=== PATIENT | male | born 1980 | race Caucasian/White ===

== ENCOUNTER 2021-05-12 07:47 | Observation (INO) | payer MEDICARE, MEDICAID ==
[~2021-05-12] VITALS: Ht 157.5 cm; Wt 82.3 kg
[2021-05-12] MEDS ORDERED: ACETAMINOPHEN TAB 650MG DOSE (2X325MG) PO ONE (08:10)
--- NOTE | 2021-05-12 08:29 | REP ---
INDICATION: seizure COMPARISON: None. TECHNIQUE: Axial noncontrast images from the skull base to the vertex with coronal reformations. This CT examination was performed using the following dose reduction techniques: Automated exposure control, adjustment of mA and/or kv according to the patient's size, and use of iterative reconstruction technique. FINDINGS: The ventricles, sulci, and cisterns are normal in position and appearance. Agustin-white differentiation is maintained. No acute intracranial hemorrhage, mass/mass effect, pathology or trauma/injury. No evidence for acute infarction. No extra-axial fluid collection. Calvarium is intact. Paranasal sinuses and mastoid air cells are clear. IMPRESSION: Normal noncontrast head CT. No evidence for acute intracranial pathology or trauma/injury. <Electronically signed by Solomon Funk > 05/12/21 [id number]
[2021-05-12] MEDS ORDERED: lamoTRIgine 100MG TAB PO ONE (09:00)
[2021-05-12] MEDS ORDERED: GABAPENTIN 300 MG CAP PO SCH (09:00)
--- NOTE | 2021-05-12 09:20 | REP ---
INDICATION: seizure COMPARISON: None. TECHNIQUE: Portable AP view of the chest FINDINGS: The mediastinum and cardiac silhouette are within normal limits for portable technique. The lung davidson are clear without acute consolidation, effusion, or pneumothorax. Skeletal structures are intact. IMPRESSION: No acute cardiopulmonary process appreciated. <Electronically signed by Solomon Funk > 05/12/21 [id number]
[2021-05-12] MEDS ORDERED: PANT20TA51 PO (09:24)
[2021-05-12] MEDS ORDERED: QUET300T2 PO (09:24)
[2021-05-12] MEDS ORDERED: ASPI81TA26 PO (09:24)
[2021-05-12] MEDS ORDERED: GABA-282 PO (09:24)
[2021-05-12] MEDS ORDERED: ADDE10TA PO (09:24)
[2021-05-12] MEDS ORDERED: NIFE1TAB51 PO (09:24)
[2021-05-12] MEDS ORDERED: BRIL90TA PO (09:24)
[2021-05-12] MEDS ORDERED: CLON0.5T2 PO (09:24)
[2021-05-12] MEDS ORDERED: ATOR80TA59 PO (09:24)
[2021-05-12] MEDS ORDERED: LEXA1TAB2 PO (09:24)
[2021-05-12] MEDS ORDERED: JARD1TAB3 PO (09:37)
[2021-05-12] MEDS ORDERED: LISI10TA22 PO (09:37)
[2021-05-12] MEDS ORDERED: LAMO25TA4 PO (09:37)
[2021-05-12] MEDS ORDERED: METO25TA4 PO (09:37)
[2021-05-12] MEDS ORDERED: MORPHINE 4 MG/ML 1ML VIAL/SYRINGE (J2270) IV ONE (09:40)
[2021-05-12 09:41] LABS: BLOOD UREA NITROGEN 21 MG/DL (7-18); CARBON DIOXIDE LEVEL 24 MEQ/L (21-32); CHLORIDE LEVEL 108 MEQ/L (98-107); CK-MB VALUE MASS < 1.0 NG/ML (<3.6); CPK CREATINE PHOSPHOKINASE 49 U/L (39-308); CREATININE FOR GFR 1.51 MG/DL (0.70-1.30); GLOMERULAR FILTRATION RATE 54.8 (>60); GLUCOSE, FASTING 115 MG/DL (70-100); MB/CK RELATIVE INDEX 2.04 (< OR =4); POTASSIUM SERUM 3.7 MEQ/L (3.5-5.1); SODIUM LEVEL 140 MEQ/L (136-145); TROPONIN I < 0.02 NG/ML (< 0.10)
[2021-05-12] MEDS ORDERED: INSUHUMDS SC (09:46)
[2021-05-12] MEDS: ATORVASTATIN 20 MG TAB PO SCH (10:52)
[2021-05-12] MEDS: ESCITALOPRAM OXALATE 10 MG TAB (LEXAPRO) PO SCH (10:52)
[2021-05-12] MEDS: ASPIRIN 81MG ENTERIC TABLET PO SCH (10:53)
[2021-05-12] MEDS ORDERED: DEXTROSE 50% 50 ML SYRINGE IV PRN (12:20)
[2021-05-12] MEDS ORDERED: GLUCOSE 4GM CHEW TABLET PO PRN (12:20)
[2021-05-12] MEDS ORDERED: GLUCAGON INJ 1MG VIAL SC PRN (12:20)
--- NOTE | 2021-05-12 12:26 | HPEPDOC ---
General Date of Admission May 12, 2021 at 07:48 Date of Service: May 12, 2021 Chief Complaint The patient is a 40-year-old male admitted with a reason for visit of Seizure. Source: Patient, RN/MD History of Present Illness This is a 40-year-old male with history of seizure disorder from the age of 2 years diabetes, hypertension, CKD, CAD status post 1 stent in the RCA, nonco mpliant with medications as per external medication history presented as a transfer from [facility] emergency room to our emergency room for multiple seizure. Patient reports that he has been seizure-free for for the past 2 years. Then in the past 24 hours he had 6 seizures, 3 at home during the ambulance, 1 outside hospital emergency room. He has not had any seizure in our emergency room. He reports that he was started on Chantix about 10 days ago which helped with his smoking but it started giving him bad headaches he was very tired and was sleeping most of the day. Today he complains of a headache 8 /10 in intensity throbbing all over the head with the light bothering him. He reports that he is supposed to be on lamotrigine to 225 mg twice a day. Patient was discussed with Dr. Robles by ED provider Dr. Agustin and he was restarted on his lamotrigine. Patient was admitted for multiple seizures. I spoke with the patient's friend Kaley who also picks up his medications and sometimes sets them up. She states that he definitely takes his seizure medication his Klonopin and his Adderall. He was not take taking his cardiac medications but he started taking them last month. She does say that he had lots of old medications remaining from years before up to 5 years old medications which he has been finishing up so he does not always picker box operator his medications from the pharmacy. She did say that he is not good about taking his medications and just recently they have started a systems requirements planner and she has been helping him get back on track. Home Medications Scheduled Aspirin (Aspirin EC) 81 Mg Tablet., 81 MG PO DAILY, (Reported) Atorvastatin Calcium (Atorvastatin Calcium) 80 Mg Tablet, 80 MG PO DAILY, (Reported) Dextroamphetamine/Amphetamine (Adderall 10 mg Tablet) 10 Mg Tablet, 10 MG PO BID, (Reported) TAKES AM/AFTERNOON Empagliflozin (Jardiance) 25 Mg Tablet, 25 MG PO DAILY, (Reported) Escitalopram Oxalate (Lexapro) 20 Mg Tablet, 20 MG PO DAILY, (Reported) Gabapentin (Gabapentin) 300 Mg Capsule, 900 MG PO BID, (Reported) Insulin Human Lispro (Humalog) 100 Unit/1 Ml Vial, 1 UNITS SC ACHS, (Reported) Lamotrigine (Lamotrigine) 25 Mg Tablet, 25 MG PO BID, (Reported) PT STATES TAKES 225MG, NO RECORD WITH PHARMACY Lisinopril (Lisinopril) 10 Mg Tablet, 10 MG PO DAILY, (Reported) Metoprolol Tartrate (Metoprolol Tartrate) 25 Mg Tablet, 12.5 MG PO BID, (Reported) Nifedipine (Nifedipine ER) 60 Mg Tab.er.24, 60 MG PO DAILY, (Reported) Pantoprazole Sodium (Pantoprazole Sodium) 20 Mg Tablet.dr, 20 MG PO DAILY, (Reported) Quetiapine Fumarate (Quetiapine Fumarate) 300 Mg Tablet, 300 MG PO QHS, (Reported) Ticagrelor Base (Brilinta) 90 Mg Tablet, 90 MG PO BID, (Reported) Scheduled PRN Clonazepam (Clonazepam) 0.5 Mg Tablet, 0.5 MG PO QID PRN for ANXIETY, (Reported) Allergies Coded Allergies: prednisone (Verified Allergy, Severe, seizure, 05/12/21) pregabalin (Verified Allergy, Severe, seizures, 05/12/21) pseudoephedrine (Verified Allergy, Severe, seizures, 05/12/21) metformin (Verified Adverse Reaction, Mild, GI/ sx's, 05/12/21) Past Medical History Medical History Seizure from the age of 2 years, history of meningitis at the age of 18 months, 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, diabetes, CKD stage III, hypertension, CAD status post 1 stent in the RCA, bipolar disorder, generalized anxiety disorder, ADHD, migraine, head trauma, cholecystectomy Family History Significant Family History: Diabetes, Heart disease Social History * Smoker: current smoker Alcohol: rarely Drugs: denies A-FIB/CHADSVASC A-FIB History Current/History of A-Fib/PAF?: No Review of Systems Constitutional: Denies: Chills, Fever, Night Sweats Eyes: Denies: Pain, Vision change ENT: Reports: Head Aches Skin: Denies: Rash, Lesions, Breakdown Pulmonary: Denies: Dyspnea, Cough Cardiovascular: Denies: Chest Pain, Palpitations, Orthopnea, Paroxysmal Noc. Dyspnea, Lt Headedness Gastrointestinal: Denies: Nausea, Vomiting, Abdominal Pain, Diarrhea Genitourinary: Denies: Dysuria, Frequency, Incontinence, Retention Hematologic: Denies: Bruising, Bleeding Excessively Physical Examination General Exam: Positive: Alert, Cooperative, No Acute Distress Eye Exam: Positive: PERRLA, Conjunctiva & lids normal, EOMI; Negative: Sclera icteric Neck Exam: Positive: Supple; Negative: JVD, thyromegaly Chest Exam: Positive: Clear to auscultation, Normal air movement Heart Exam: Positive: Rate Normal, Regular Rhythm, Normal S1, Normal S2; Negative: Murmurs, Rubs Abdomen Exam: Positive: Normal bowel sounds, Soft; Negative: Tenderness, Hepatospenomegaly Extremity Exam: Negative: Clubbing, Cyanosis, Edema Psych Exam: Positive: Memory Intact, Oriented x 3 Vital Signs Vital Signs Date Time Temp Pulse Resp B/P (MAP) Pulse Ox O2 Delivery O2 Flow Rate FiO2 05/12/21 09:58 18 05/12/21 09:48 Room Air 05/12/21 09:28 74 05/12/21 08:45 116/79 (91) 95 05/12/21 07:58 97.0 Laboratory Data Labs 24H Laboratory Tests 2 05/12/21 08:54: Anion Gap 8, Glomerular Filtration Rate 54.8L, Calcium Level 8.0L, Total Creati ne Kinase 49, Creatine Kinase MB < 1.0, Creatine Kinase MB Relative Index 2.04, Troponin I < 0.02 CBC/BMP Laboratory Tests 05/12/21 08:54 Assessment/Plan This is a 40-year-old male with history of seizure disorder from the age of 2 years diabetes, hypertension, CKD, CAD status post 1 stent in the RCA, noncompliant with medications as per external medication history presented as a transfer from [facility] emergency room to our emergency room for multiple seizure. Multiple seizures Probably precipitated by initiation of Chantix which lowers the seizure threshold Also I am concerned about his compliance with medications because when I reviewed the external medication history I often see many months when he has not picked up his medications. Patient is confident he is taking 225 mg of Lamictal twice daily so I will keep him on the same dose. His friend does confirm he had lots of old Lamictal remaining from up to 3 to 4 years ago which she has been finishing up. Headache This could be up post ictal headache versus a migraine We will give Tylenol and oxycodone. KADE on CKD Patient reports that he has some kidney problems but I could not find any blood rec blood tests and health connection And at [facility] his creatinine was 2.5. After several liters of fluids at our hospital his creatinine is 1.5 We will continue to monitor We will stop lisinopril CAD status post stent in the RCA Patient was off all his cardiac medications for several months at least 3 to 6 months restarted on cardiac medications on April 25 Continue aspirin, Brilinta, atorvastatin, metoprolol Hypertension Patient was hypotensive when he arrived to our emergency room and received 3 L of fluid bolus So will hold lisinopril and nifedipine extended release We will only continue with metoprolol Generalized anxiety disorder/bipolar We will continue with clonazepam, Lexapro. Will not give Seroquel as I am not sure if he is taking it Diabetes. Lispro AC and HS. FS, AC and HS ADHD Adderall GERD PPI Plan / VTE VTE Prophylaxis Ordered?: Yes LINNEA DE SANTIAGO MD May 12, 2021 12:25
[2021-05-12 13:10] LABS: HEMOGLOBIN A1c 7.2 %
[2021-05-12] MEDS: METOPROLOL TART 25 MG TABLET PO SCH ×2 (14:03→21:31)
[2021-05-12] MEDS: HumaLOG INSULIN (NovoLOG) PER UNIT SC SCH ×2 (14:04→17:35)
[2021-05-12] MEDS: ADDERALL 5 MG TAB PO SCH (14:35)
[2021-05-12] MEDS: PANTOPRAZOLE 20 MG TAB PO SCH (14:35)
[2021-05-12] MEDS: TICAGRELOR 90 MG TABLET (BRILINTA) PO SCH ×2 (14:36→21:33)
[2021-05-12] MEDS: oxyCODONE 5MG TAB PO PRN ×2 (14:36→21:34)
[2021-05-12] MEDS: ACETAMINOPHEN 500 MG TAB PO PRN (15:41)
[2021-05-12] MEDS: clonazePAM 0.5 MG TAB PO PRN (19:13)
[2021-05-12] MEDS ORDERED: HEPARIN SOD (PORCINE) 5000UNITS/ML 1ML VIAL/SYRINGE SC SCH (21:00)
[2021-05-12] MEDS ORDERED: HumaLOG INSULIN (NovoLOG) PER UNIT SC SCH (21:00)
[2021-05-12] MEDS ORDERED: QUEtiapine FUMARATE 100 MG TAB PO SCH (21:00)
[2021-05-12] MEDS: lamoTRIgine 100MG TAB PO SCH (21:32)
[2021-05-12] MEDS: lamoTRIgine 25MG TAB PO SCH (21:32)
[2021-05-12 22:00] VITALS: BP 112/63
[2021-05-13] MEDS: ACETAMINOPHEN 500 MG TAB PO PRN ×2 (01:37→09:09)
[2021-05-13] MEDS: clonazePAM 0.5 MG TAB PO PRN (01:55)
[2021-05-13] MEDS: oxyCODONE 5MG TAB PO PRN ×2 (04:28→11:58)
[2021-05-13 06:00] VITALS: BP 127/79
[2021-05-13 06:33] LABS: HEMATOCRIT 45.6 % (42.0-52.0); HEMOGLOBIN 15.6 g/dl (13.5-17.5); MEAN CORPUSCULAR HEMOGLOBIN 31.5 pg (27.0-33.0); MEAN CORPUSCULAR HGB CONC 34.2 g/dl (32.0-36.5); MEAN CORPUSCULAR VOLUME 92.1 fl (80.0-96.0); PLATELET COUNT, AUTOMATED 219 10^3/uL (150-450); RED BLOOD COUNT 4.95 10^6/uL (4.30-6.10); WHITE BLOOD COUNT 8.6 10^3/uL (4.0-10.0)
[2021-05-13 06:53] LABS: ALBUMIN 2.9 GM/DL (3.2-5.2); ALT/SGPT 29 U/L (12-78); BILIRUBIN,TOTAL 0.3 MG/DL (0.2-1.0); BLOOD UREA NITROGEN 14 MG/DL (7-18); CALCIUM LEVEL 8.7 MG/DL (8.5-10.1); CARBON DIOXIDE LEVEL 26 MEQ/L (21-32); CHLORIDE LEVEL 110 MEQ/L (98-107); CREATININE FOR GFR 0.97 MG/DL (0.70-1.30); GLOMERULAR FILTRATION RATE > 60.0 (>60); GLUCOSE, FASTING 114 MG/DL (70-100); SODIUM LEVEL 140 MEQ/L (136-145); TOTAL PROTEIN 6.3 GM/DL (6.4-8.2)
[2021-05-13] MEDS: HumaLOG INSULIN (NovoLOG) PER UNIT SC SCH ×2 (07:30→11:58)
[2021-05-13] MEDS: ADDERALL 5 MG TAB PO SCH ×2 (08:56→12:52)
[2021-05-13] MEDS: PANTOPRAZOLE 20 MG TAB PO SCH (08:56)
[2021-05-13] MEDS: ESCITALOPRAM OXALATE 10 MG TAB (LEXAPRO) PO SCH (08:56)
[2021-05-13 08:57] VITALS: BP 127/79
[2021-05-13] MEDS: ASPIRIN 81MG ENTERIC TABLET PO SCH (08:57)
[2021-05-13] MEDS: lamoTRIgine 25MG TAB PO SCH (08:57)
[2021-05-13] MEDS: TICAGRELOR 90 MG TABLET (BRILINTA) PO SCH (08:57)
[2021-05-13] MEDS: lamoTRIgine 100MG TAB PO SCH (08:57)
[2021-05-13] MEDS: METOPROLOL TART 25 MG TABLET PO SCH (08:57)
[2021-05-13] MEDS: ATORVASTATIN 20 MG TAB PO SCH (08:57)
[2021-05-13] MEDS ORDERED: LAMO100T80 PO (11:03)
--- NOTE | 2021-05-13 12:58 | DSES ---
DISCHARGE SUMMARY DATE OF ADMISSION: 05/12/2021 DATE OF DISCHARGE: 05/13/2021 PRIMARY DISCHARGE DIAGNOSES: 1. Medical noncompliance with seizure medications with possible interaction with Chantix lowering seizure threshold. 2. Multiple seizures. 3. Headache. 4. Acute kidney injury on chronic kidney disease stage 3 secondary to Lisinopril. 5. Hypertension. 6. Generalized anxiety, bipolar disorder. 7. Type 2 diabetes. 8. Attention deficit hyperactivity disorder. 9. Gastroesophageal reflux disease. DISCHARGE MEDICATIONS: 1. Patient's Lamictal had been increased to 225 mg PO twice daily from previous Lamotrigine of 25 mg twice daily. 2. Aspirin 81 mg daily. 3. Atorvastatin 80 daily. 4. Clonazepam 0.5 four times daily as needed. 5. Adderall 10 twice daily. 6. Jardiance 25 daily. 7. Lexapro 20 daily. 8. Gabapentin 900 twice daily. 9. Insulin Lispro sliding scale. 10. Lisinopril has been discontinued. 11. Metoprolol 12.5 twice daily. 12. Nifedipine 60 daily. 13. Protonix 20 daily. 14. Metiapine 300 at nighttime. 15. Brilinta 90 mg twice daily. HOSPITAL COURSE: This is a 40-year-old male from [place] presented with multiple seizures, found to have low dose of Lamictal 25 mg twice daily. The patient was also found to have acute kidney injury, Lisinopril was held. The patient was given IV fluids and started on increased dose of Lamotrigine at 225 mg twice daily as recommended by Dr. Robles as contacted by the ER physician, Dr. Agustin. The patient says that he does not always meat pickler his medications from the pharmacy and he is not good at taking his medications and has started to place it on a senior production planner. The patient's creatinine returned back to normal after holding his Lisinopril and giving him intravenous fluids. His blood pressure has remained stable at 112 to127 systolic with pulse of 79 to 90. Imaging studies included chest x-ray which was negative for acute cardiothoracic process. CT of the head was also normal. The patient is discharged in stable condition. PHYSICAL EXAM: VITALS: Temperature 97.9, pulse 90, respiratory rate 18, blood pressure 127/79. 96% on room air. HEENT: Generally his face is symmetric. Tongue is midline, speaking in full sentences. NECK: No JVD, thyromegaly or cervical lymphadenopathy. LUNGS: Clear to auscultation, no wheezes, rhonchi or rales. HEART: S1, S2, sinus rhythm. ABDOMEN: Soft, nontender, non-distended, positive bowel sounds. EXTREMITIES: No cyanosis, clubbing or pitting edema. Laboratory data and imaging studies all have been reviewed, please see the chart. Creatinine is improved from admission of 1.5 to 0.97. Time spent on discharge 30 minutes. MTDD
--- NOTE | 2021-05-15 09:18 | EEG ---
ELECTROENCEPHALOGRAM DATE: 05/13/2021 DIAGNOSIS: Seizure. EEG# [id number] REFERRING PHYSICIAN: Dr. Geovanna Gutierrez HISTORY: The patient is a 40-year-old man with a history of seizures since age [age], diabetes, hypertension, chronic kidney disease, noncompliance with medications. He was transferred from [facility] Emergency Department due to multiple seizures. He is currently taking lamotrigine, clonazepam, Oxycodone, metoprolol, Protonix, Adderall, Brilinta. TECHNICAL DESCRIPTION: This digital electroencephalogram (EEG) was recorded by 21 scalp, ear, and two electrocardiogram (EKG) electrodes and was reviewed in bipolar and referential montages following reformatting in 10-20 international electrode placement system. INTERPRETATION: The patient was noted to be in awake and drowsy states during this EEG. Resting and awake background rhythm consisted of 9 Hz alpha activity measuring 15-40 microvolts in amplitude which was symmetric and reactive to eye opening. Attenuation of posterior dominant rhythm was seen during transition to drowsiness. No sleep was achieved. Hyperventilation could not be performed. Photic stimulation remained unremarkable. EKG revealed normal sinus rhythm. No focal, lateralizing, or epileptiform abnormalities were seen. No relevant clinical activity was noted. CONCLUSION: This EEG in awake and drowsy states is within normal limits.
== END 2021-05-13 15:20 | disposition home or self-care (01) ==
LOC: M ED 07:47 → EDBD 07:47 → EDSEX 07:47 → M ED INP 07:48 → ENRESERV 12:37 → M MS5PR 14:22
PROVIDERS: ADMIT Internal Medicine Nephrology; ATTEND General Practice
DX: G40.901 Epilepsy, unspecified, not intractable, with status epilepticus (principal); Z91.14 Patient's other noncompliance with medication regimen; R51.9 Headache, unspecified; N18.30 Chronic kidney disease, stage 3 unspecified; N17.9 Acute kidney failure, unspecified; E11.22 Type 2 diabetes mellitus with diabetic chronic kidney disease; F90.9 Attention-deficit hyperactivity disorder, unspecified type; F31.9 Bipolar disorder, unspecified; K21.9 Gastro-esophageal reflux disease without esophagitis; I25.10 Atherosclerotic heart disease of native coronary artery without angina pectoris; Z79.4 Long term (current) use of insulin; Z79.899 Other long term (current) drug therapy; Z79.82 Long term (current) use of aspirin; Z98.61 Coronary angioplasty status; Z88.8 Allergy status to other drugs, medicaments and biological substances; F17.218 Nicotine dependence, cigarettes, with other nicotine-induced disorders
CPT/HCPCS: 36415; 70450; 71045; 80048; 80053; 80175; 82550; 82553; 83036; 84484; 85027; 93041; 95819; 96374; 99285; G0378; J2270